=== PATIENT | male | born 1945 | race Caucasian/White ===

== ENCOUNTER 2021-10-22 13:28 | Emergency (ER) | payer MEDICARE ==
--- NOTE | 2021-10-22 13:54 | ERPHSYRPT ---
- History of Present Illness Time Seen by Provider: 10/22/21 13:51 Source: patient Exam Limitations: no limitations Patient Subjective Stated Complaint: Pt states "I had open heart surgery three weeks ago and I have not gone to the bathroom in about a week or two." Triage Nursing Assessment: Pt presented alert and oriented X 3, skin pwd Pt ambualtes with a slow gait, able to speak in clear full sentences pt in no apparent respiratory distress. Physician History: Pt states "I had open heart surgery three weeks ago and I have not gone to the bathroom in about a week or two." Denies any other complaints. Timing/Duration: week(s) Associated Symptoms: denies symptoms Allergies/Adverse Reactions: bacitracin Allergy (Unknown, Verified 10/22/21 13:36) Home Medications: Clopidogrel Bisulfate [Clopidogrel] 75 mg PO 10/22/21 [History] Glimepiride 4 mg [Amaryl 4 mg] 10/22/21 [History] Lisinopril 10 mg [Zestril 10 MG] 10 mg PO DAILY 10/22/21 [History] Metformin HCl [Metformin ER Gastric] 1,000 mg PO DAILY 10/22/21 [History] Hx Tetanus, Diphtheria Vaccination/Date Given: No Hx Influenza Vaccination/Date Given: No Hx Pneumococcal Vaccination/Date Given: No Immunizations Up to Date: Yes Travel Risk - International Travel Have you traveled outside of the country in past 3 weeks: No - Coronavirus Screening Are you exhibiting any of the following symptoms?: No Close contact with a COVID-19 positive Pt in past 14-21 Days: No - Vaccine Status Have you recieved a Covid-19 vaccination: Yes Leg Man: HDmessaging - Vaccination Dates Date of 2cond Vaccination (if applicable): 2020 - Review of Systems Constitutional: No Symptoms Eyes: No Symptoms Ears, Nose, & Throat: No Symptoms Respiratory: No Symptoms Cardiac: No Symptoms Abdominal/Gastrointestinal: Constipation Genitourinary Symptoms: No Symptoms Musculoskeletal: No Symptoms Skin: No Symptoms - Past Medical History Pertinent Past Medical History: Yes Cardiac History: Coronary Artery Disease, High Cholesterol GI Medical History: GERD - Past Surgical History Past Surgical History: Yes Cardiac: CABG - Social History Smoking Status: Never smoker Exposure to second hand smoke: No Drug Use: none Patient Lives Alone: No - Nursing Vital Signs Nursing Vital Signs: Initial Vital Signs Temperature 97.4 F 10/22/21 13:30 Pulse Rate 96 H 10/22/21 13:30 Respiratory Rate 22 10/22/21 13:30 Blood Pressure 120/71 10/22/21 13:30 O2 Sat by Pulse Oximetry 98 10/22/21 13:30 Pain Scale Pain Intensity 0 - Physical Exam General Appearance: no apparent distress, alert Eye Exam: PERRL/EOMI, eyes nml inspection Ears, Nose, Throat Exam: normal ENT inspection, TMs normal, pharynx normal, m oist mucous membranes Neck Exam: normal inspection, non-tender, supple, full range of motion Respiratory Exam: normal breath sounds, lungs clear, No respiratory distress Cardiovascular Exam: regular rate/rhythm, normal heart sounds, normal peripheral pulses Gastrointestinal/Abdomen Exam: soft, normal bowel sounds, No tenderness, No mass Back Exam: normal inspection, normal range of motion, No CVA tenderness, No vertebral tenderness Extremity Exam: normal inspection, normal range of motion, pelvis stable Neurologic Exam: alert, oriented x 3, cooperative, normal mood/affect, nml cerebellar function, nml station & gait, sensation nml, No motor deficits Skin Exam: normal color, warm, dry, No rash Lymphatic Exam: No adenopathy SpO2: 98 - Course Nursing assessment & vital signs reviewed: Yes - Progress Progress: improved Counseled pt/family regarding: diagnosis, need for follow-up - Departure Departure Disposition: Home Clinical Impression: Constipation by delayed colonic transit Condition: Stable Critical Care Time: No Referrals: BRIELLE KOCH JR [Primary Care Provider] - Follow up/PCP as directed Instructions: Constipation, Adult (DC) Additional Instructions: Discharge/Care Plan JACOB SHETTY JD was seen on 10/22/21 in the Emergency Room. The patient was counseled regarding Diagnosis,Lab results, Imaging studies, need for follow up and when to return to the Emergency Room. Prescriptions given: Discharge Note I have spoken with the patient and/or caregivers. I have explained the patient's condition, diagnosis and treatment plan based on the information available to me at this time. I have answered the patient's and/or caregiver's questions and addressed any concerns. The patient and/or caregivers have as good understanding of the patient's diagnosis, condition and treatment plan as can be expected at this point. The vital signs have been stable. The patient's condition is stable and appropriate for discharge from the emergency department. The patient will pursue further outpatient evaluation with the primary care physician or other designated or consulting physician as outlined in the discharge instructions. The patient and/or caregivers are agreeable to this plan of care and follow-up instructions have been explained in detail. The patient and/or caregivers have received these instruction. The patient/and or caregivers are aware that any significant change in condition or worsening of symptoms should prompt an immediate return to this or the closest emergency department or call 911. Please take Metamucil 1 tablespoon with water or any other fluid twice a day. Apply glycerin around anal area for soreness.
[2021-10-22 14:11] VITALS: BP 126/68; PULSE 92; O2SAT 97
== END 2021-10-22 14:08 | disposition home or self-care (01) ==
LOC: ED 13:28
DX: K59.01 Slow transit constipation (principal); E78.5 Hyperlipidemia, unspecified; Z79.02 Long term (current) use of antithrombotics/antiplatelets; Z79.899 Other long term (current) drug therapy
CPT/HCPCS: 99281